=== PATIENT | male | born 1965 | race Hispanic/Latino ===

== ENCOUNTER 2016-10-18 01:09 | Emergency (ER) | payer MEDICAID ==
[2016-10-18 01:15] VITALS: BMI 32.8
--- NOTE | 2016-10-18 01:30 | ED PDOC ---
Arrival/HPI - General Chief Complaint: Trauma Time Seen by Provider: 10/18/16 01:11 Historian: Patient - History of Present Illness Narrative History of Present Illness (Text): 10/18/16 01:25 Mahesh Mckenna is a 51 year old male, with a history of right knee repair, presents to the emergency department complaining of left posterior rib pain status post mechanical fall at 6:30 pm yesterday. Patient states he slipped on ice and fell backward. Denies any head trauma as he grabbed the back of his head with his hands while falling backward. Denies any loss of consciousness. Informs that pain is worsened with deep inspirations. Denies any fever, chills, headache, neck pain, weakness/numbness to extremities or any other complaints at this time. Time/Duration: 4-6 hours Symptom Onset: Sudden Symptom Course: Unchanged Severity Level: Moderate Activities at Onset: Significant Context: Pedestrian Past Medical History - Provider Review Nursing Documentation Reviewed: Yes - Infectious Disease Hx of Infectious Diseases: None - Tetanus Immunization Tetanus Immunization: Unknown - Past Medical History Past Medical History: Non-Contributing - Pulmonary Other/Comment: Smoker - Musculoskeletal/Rheumatological Hx Falls: No Other/Comment: Knee Surgery Right - Psychiatric Hx Depression: No Hx Substance Use: No - Surgical History Hx Orthopedic Surgery: Yes (B/L Knees) - Anesthesia Hx Anesthesia: Yes Hx Anesthesia Reactions: No Hx Malignant Hyperthermia: No - Suicidal Assessment Feels Threatened In Home Enviroment: No Family/Social History - Physician Review Nursing Documentation Reviewed: Yes Family/Social History: No Known Family HX Smoking Status: Current Some Days Smoker Hx Alcohol Use: No Hx Substance Use: No Hx Substance Use Treatment: No Allergies/Home Meds Allergies/Adverse Reactions: Allergies No Known Allergies Allergy (Verified 03/22/12 02:28) Review of Systems - Physician Review All systems were reviewed & negative as marked: Yes - Review of Systems Constitutional: Normal. absent: Fatigue, Fevers Respiratory: Normal. absent: SOB Cardiovascular: Normal. absent: Chest Pain Gastrointestinal: Normal. absent: Abdominal Pain, Diarrhea, Nausea, Vomiting Musculoskeletal: Back Pain (right posterior rib pain ) Skin: Normal Neurological: Normal. absent: Headache, Dizziness Psychiatric: Normal Physical Exam Vital Signs Reviewed: Yes Vital Signs Temp Pulse Resp BP Pulse Ox 10/18/16 01:33 98.1 F 98 H 20 139/99 H 97 Temperature: Afebrile Blood Pressure: Normal Pulse: Regular Respiratory Rate: Normal Appearance: Positive for: Well-Appearing, Non-Toxic, Comfortable Pain Distress: None Mental Status: Positive for: Alert and Oriented X 3 - Systems Exam Head: Present: Atraumatic, Normocephalic Pupils: Present: PERRL Extroacular Muscles: Present: EOMI Conjunctiva: Present: Normal Neck: Present: Normal Range of Motion. No: MIDLINE TENDERNESS, Paraspinal Tenderness Respiratory/Chest: Present: Clear to Auscultation, Good Air Exchange. No: Respiratory Distress, Accessory Muscle Use Cardiovascular: Present: Regular Rate and Rhythm, Normal S1, S2. No: Murmurs Abdomen: Present: Normal Bowel Sounds. No: Tenderness, Distention, Peritoneal Signs, Rebound, Guarding Back: Present: Other (left posterior rib tenderness ). No: CVA Tenderness, Midline Tenderness Neurological: Present: GCS=15, CN II-XII Intact, Speech Normal, Motor Func Grossly Intact, Normal Sensory Function Skin: Present: Warm, Dry, Normal Color. No: Rashes Psychiatric: Present: Alert, Oriented x 3, Normal Insight, Normal Concentration Medical Decision Making ED Course and Treatment: 10/18/16 01:32 Impression: A 51 year old male who presents to the ed complaining of back pain s /p mechanical fall by slipping on ice prior to arrival. On PE, patient has tenderness to left posterior rib area; No abdominal tenderness Differential diagnosis: Rib pain: r/o fracture Plan: -- Morphine -- Rib X-ray Progress Notes: 10/18/16 03:40 X-ray shows left 9th and 10th rib fracture. 10/18/16 03:44 Patient is stable for discharge. Will discharge patient on Motrin and Percocet as needed for worsening pain. Incentive Spirometry at least 3 times daily as instructed. Advised to follow up with PMD within 2-3 days and present back to ed if symptoms worsen. - RAD Interpretation Narrative RAD Interpretations (Text): EXAM: XR Left Ribs and AP Chest, 3 or More Views. FINDINGS: Lungs: Mild subsegmental atelectasis. No consolidation. Pleural space: No pleural effusion. No definite pneumothorax. Heart: No cardiomegaly. Mediastinum: Unremarkable. Bones/joints: Fracture LEFT 9th, 10th ribs. Degenerative changes of shoulders and spine. IMPRESSION: 1. LEFT rib fractures. 2. Incidental/non-acute findings are described above. Radiology Orders: 10/18/16 01:18 RIBS LEFT & PA CHEST [RAD] Stat Formula Checker: Radiologist - Medication Orders Current Medication Orders: Discontinued Medications Morphine Sulfate (Morphine) 6 mg IM STAT STA Stop: 10/18/16 01:19 Last Admin: 10/18/16 01:34 Dose: 6 MG IM Administration Charges Document 10/18/16 01:34 JMR (Rec: 10/18/16 01:34 JMR [facility]) Injection Site MAR Injection Site Left Deltoid Charges for Administration # of IM Administrations 1 - Scribe Statement The provider has reviewed the documentation as recorded by the Arlette Moya Provider Attestation: All medical record entries made by the Marieibgabe were at my direction and personally dictated by me. I have reviewed the chart and agree that the record accurately reflects my personal performance of the history, physical exam, medical decision making, and the department course for this patient. I have also personally directed, reviewed, and agree with the discharge instructions and disposition. Disposition/Present on Arrival - Present on Arrival Any Indicators Present on Arrival: No History of DVT/PE: No History of Uncontrolled Diabetes: No Urinary Catheter: No History of Decub. Ulcer: No History Surgical Site Infection Following: None - Disposition Have Diagnosis and Disposition been Completed?: Yes Diagnosis: Rib fractures Disposition: HOME/ ROUTINE Disposition Time: 03:56 Patient Plan: Discharge Patient Problems: Current Active Problems Problem Status Diagnosed Rib fractures Acute Condition: IMPROVED Discharge Instructions (ExitCare): Rib Fracture (ED) Additional Instructions: Mr. Mckenna thank you for letting us take care of you today. Your provider was Dr. Berry. You were treated for Rib Fractures The emergency medical care you received today was directed at your acute symptoms. If you were prescribed any medication, please fill it and take as directed. It may take several days for your symptoms to resolve. Return to the Emergency Department if your symptoms worsen, do not improve, or if you have any other problems. Please contact your doctor or call one of the physicians/clinics you have been referred to that are listed on the Patient Visit Information form that is included in your discharge packet. Bring any paperwork you were given at discharge with you along with any medications you are taking to your follow up visit. Our treatment cannot replace ongoing medical care by a primary care provider (PCP) outside of the emergency department. Make sure to use incentive spirometry as least 3x daily as instructed. Thank you for allowing the [facility] team to be part of your care today. If you had an X-Ray or CT scan: A Radiologist will review the ED reading if any change in treatment is needed we will contact you. If you had a blood, urine, or wound culture: It will take several days for the results, if any change in treatment is needed we will contact you. If you had an STI test: It will take 48 hours for the results. Please call after 1 week if you have not heard back. Prescriptions: Ibuprofen [Motrin] 600 mg PO Q6 PRN #30 tab PRN Reason: Pain, Moderate (4-7) oxyCODONE/Acetaminophen [Percocet 5/325 mg Tab] 1 ea PO Q6 PRN #10 tab PRN Reason: Pain, Moderate (4-7) Referrals: [facility] [place] [facility] [place] - Follow up with primary Forms: WORK NOTE
--- NOTE | 2016-10-18 03:38 | RAD ---
EXAM: XR Left Ribs and AP Chest, 3 or More Views. CLINICAL HISTORY: 51 years old, male; Injury or trauma; Fall; Initial encounter; Rib area, left side; Fracture, traumatic; Multiple; Closed; Additional info: Fall R/O rib frx TECHNIQUE: Frontal and oblique views of the left ribs and frontal view of the chest. COMPARISON: No relevant prior studies available. FINDINGS: Lungs: Mild subsegmental atelectasis. No consolidation. Pleural space: No pleural effusion. No definite pneumothorax. Heart: No cardiomegaly. Mediastinum: Unremarkable. Bones/joints: Fracture LEFT 9th, 10th ribs. Degenerative changes of shoulders and spine. IMPRESSION: 1. LEFT rib fractures. 2. Incidental/non-acute findings are described above.
[2016-10-18 04:01] VITALS: BP 141/81; PULSE 81; RESP 18; TEMP 98.6; O2SAT 98
== END 2016-10-18 03:57 | disposition home or self-care (01) ==
LOC: ED 01:09
DX: S22.32XA Fracture of one rib, left side, initial encounter for closed fracture (principal); W00.0XXA Fall on same level due to ice and snow, initial encounter; F17.210 Nicotine dependence, cigarettes, uncomplicated
CPT/HCPCS: 71101; 96372; 99284; J2270

== ENCOUNTER 2016-10-26 17:10 | Emergency (ER) | payer MEDICAID ==
[2016-10-26 17:19] VITALS: BMI 34.4
[2016-10-26 17:24] VITALS: TEMP 97.8
--- NOTE | 2016-10-26 17:33 | ED PDOC ---
Arrival/HPI - General Chief Complaint: Cough, Cold, Congestion Time Seen by Provider: 10/26/16 17:14 Historian: Patient - History of Present Illness Narrative History of Present Illness (Text): 10/26/16 17:26 Mahesh Mckenna is a 51 year old smoker who presents to the ED for blood tinged cough since yesterday. Patient reports he recently fractured two left ribs and he has been managing his pain with Ibuprofen and Percocets, of which he ran out. Patient otherwise denies any fever, shortness of breath, nausea, vomiting , abdominal pain, urinary/bowel changes, or other associated symptoms. PMD: None reported. Time/Duration: 24 hours Symptom Onset: Gradual Symptom Course: Unchanged Activities at Onset: Light Context: Home Past Medical History - Provider Review Nursing Documentation Reviewed: Yes - Infectious Disease Hx of Infectious Diseases: None - Tetanus Immunization Tetanus Immunization: Unknown - Past Medical History Past Medical History: Non-Contributing - Pulmonary Other/Comment: Smoker - Musculoskeletal/Rheumatological Hx Falls: No Other/Comment: Knee Surgery Right - Psychiatric Hx Depression: No Hx Substance Use: No - Surgical History Hx Orthopedic Surgery: Yes (B/L Knees) - Anesthesia Hx Anesthesia: Yes Hx Anesthesia Reactions: No Hx Malignant Hyperthermia: No - Suicidal Assessment Feels Threatened In Home Enviroment: No Family/Social History - Physician Review Nursing Documentation Reviewed: Yes Family/Social History: No Known Family HX Smoking Status: Current Some Days Smoker Hx Alcohol Use: No Hx Substance Use: No Hx Substance Use Treatment: No Allergies/Home Meds Allergies/Adverse Reactions: Allergies No Known Allergies Allergy (Verified 03/22/12 02:28) Review of Systems - Physician Review All systems were reviewed & negative as marked: Yes - Review of Systems Constitutional: Normal. absent: Fevers Eyes: Normal. absent: Vision Changes ENT: Normal Respiratory: Cough (Coughing with slight tinge of blood). absent: SOB Cardiovascular: Normal. absent: Chest Pain Gastrointestinal: Normal. absent: Abdominal Pain, Diarrhea, Nausea, Vomiting Genitourinary Male: Normal. absent: Dysuria, Frequency, Hematuria, Urinary Output Changes Musculoskeletal: Back Pain (Left Sided). absent: Neck Pain Skin: Normal Neurological: Normal. absent: Headache, Dizziness Endocrine: Normal Hemo/Lymphatic: Normal Psychiatric: Normal Physical Exam Vital Signs Reviewed: Yes Vital Signs Temp Pulse Resp BP Pulse Ox 10/26/16 17:23 97.8 F 99 H 20 150/97 H 100 10/26/16 17:21 97.8 F 99 H 20 150/97 H 100 Temperature: Afebrile Blood Pressure: Hypertensive Pulse: Tachycardic Respiratory Rate: Normal Appearance: Positive for: Well-Appearing, Non-Toxic, Comfortable Pain Distress: None Mental Status: Positive for: Alert and Oriented X 3 - Systems Exam Head: Present: Atraumatic, Normocephalic Mouth: Present: Moist Mucous Membranes Neck: Present: Normal Range of Motion Respiratory/Chest: Present: Clear to Auscultation, Good Air Exchange, Tender to Palpation (Tender to Palpation Around Lower Left 10th rib). No: Respiratory Distress, Accessory Muscle Use Cardiovascular: Present: Regular Rate and Rhythm, Normal S1, S2. No: Murmurs Abdomen: Present: Normal Bowel Sounds. No: Tenderness, Distention, Peritoneal Signs Back: Present: Normal Inspection Upper Extremity: Present: Normal Inspection. No: Cyanosis, Edema Lower Extremity: Present: Normal Inspection. No: Edema Neurological: Present: GCS=15, CN II-XII Intact, Speech Normal Skin: Present: Warm, Dry, Normal Color. No: Rashes Psychiatric: Present: Alert, Oriented x 3, Normal Insight, Normal Concentration Medical Decision Making ED Course and Treatment: 10/26/16 17:26 Impression: 51 year old male with blood tinged cough and left sided back pain. Differential Diagnosis include but are not limited to: URI vs. Lung Contusion vs pneumonia Plan: -- Chest X-Ray -- Reassess and disposition Prior Visits: Notes and results from previous visits were reviewed. Patient was last seen in the ED on 10/18/16 for evaluation status post a fall. Progress Notes: 10/26/16 19:06 CXR showing L side atelectasis. His cough has been worsening. Will treat for bronchitis. He will need additional pain meds and f/u primary care. - RAD Interpretation Narrative RAD Interpretations (Text): 10/26/16 19:07 CXR: L base atx as read by me. Radiology Orders: 10/26/16 17:29 CHEST TWO VIEWS (PA/LAT) [RAD] Stat Retort Loader: Radiologist - EKG Interpretation EKG Interpretation (Text): 10/26/16 19:07 NSR @ 83; no ST/T changes; normal axis and normal intervals. - Scribe Statement The provider has reviewed the documentation as recorded by the Arlette Kendall Provider Attestation: All medical record entries made by the Arlette were at my direction and personally dictated by me. I have reviewed the chart and agree that the record accurately reflects my personal performance of the history, physical exam, medical decision making, and the department course for this patient. I have also personally directed, reviewed, and agree with the discharge instructions and disposition. Disposition/Present on Arrival - Present on Arrival Any Indicators Present on Arrival: No History of DVT/PE: No History of Uncontrolled Diabetes: No Urinary Catheter: No History of Decub. Ulcer: No History Surgical Site Infection Following: None - Disposition Have Diagnosis and Disposition been Completed?: Yes Diagnosis: Atelectasis of left lung Disposition: HOME/ ROUTINE Disposition Time: 19:10 Patient Plan: Discharge Condition: GOOD Additional Instructions: Take the medications as prescribed. Also recommend Robitussin DM (OTC) and continue incentive spirometer. Make sure you follow up with primary care. Stop smoking. Any additional pain medications would need to be prescribed by primary care. Return to the emergency department if any new concerning symptoms. Prescriptions: oxyCODONE/Acetaminophen [Percocet 5/325 mg Tab] 1 tab PO Q6H PRN #10 tab PRN Reason: Pain, Severe (8-10) Azithromycin [Zithromax] 2 tab PO DAILY #6 tab Referrals: [facility] [place] [facility] [place] - Follow up with primary Forms: WORK NOTE
[2016-10-26 19:23] VITALS: BP 145/72; PULSE 82; RESP 16; O2SAT 97
--- NOTE | 2016-10-27 10:58 | RAD ---
HISTORY: hemoptysis, recent rib fx COMPARISON: No prior. TECHNIQUE: Chest PA and lateral FINDINGS: LUNGS: There is linear atelectasis in the left lower lobe. The right lung is clear. PLEURA: No significant pleural effusion identified. No pneumothorax apparent. CARDIOVASCULAR: Normal. OSSEOUS STRUCTURES: No significant abnormalities. VISUALIZED UPPER ABDOMEN: Normal. OTHER FINDINGS: None. IMPRESSION: Linear atelectasis in the left lower lobe. No pneumothorax.
--- NOTE | 2016-10-27 18:30 | CARD ---
APPROVED REPORT EKG Measurement Heart [id number] <Conclusion> Normal sinus rhythm Normal ECG
== END 2016-10-26 19:21 | disposition home or self-care (01) ==
LOC: ED 17:10
DX: J98.11 Atelectasis (principal); Z72.0 Tobacco use

== ENCOUNTER 2016-11-20 23:14 | Emergency (ER) | payer MEDICAID ==
[2016-11-20 23:39] VITALS: BMI 31.3
[2016-11-20 23:40] VITALS: TEMP 98.9
--- NOTE | 2016-11-21 | ED PDOC ---
Arrival/HPI <Martin Orosco - Last Filed: 11/21/16 03:51> - History of Present Illness Time/Duration: Prior to Arrival Symptom Onset: Sudden Symptom Course: Unchanged Quality: Aching, Throbbing Severity Level: 7 <Faina Miller - Last Filed: 11/21/16 04:02> - General Chief Complaint: Rib Injury Time Seen by Provider: 11/20/16 23:39 - History of Present Illness Narrative History of Present Illness (Text): 11/21/16 00:09 51 yo M smoker w h/o L 9th and 10th rib fractures presents to the ER s/p mechanical fall with left rib trauma. Patient states he fractured his left ribs approximately one month ago, has been managing pain with percocet and Tylenol at home. He states he does not have a PMD and has not obtained one nor followed up with any physician since his rib fractures one month ago. Patient states he was walking down steps today when he slipped and fell, hitting his left ribs on the banister. He immediately experienced a sharp pain at that area. He admits to mild chill since the event and increased pain with deep inspiration. Denies any CP, dizziness, headache, confusion, SOB prior to fall. Patient denies head trauma and loss of consciousness. (Faina Miller) Past Medical History - Provider Review Nursing Documentation Reviewed: Yes - Travel History Have you recently traveled outside [place] w/in the past 3 mons?: No - Infectious Disease Hx of Infectious Diseases: None - Tetanus Immunization Tetanus Immunization: Unknown - Past Medical History Past Medical History: Non-Contributing - Pulmonary Other/Comment: Smoker - Musculoskeletal/Rheumatological Hx Falls: No Other/Comment: Knee Surgery Right - Psychiatric Hx Depression: No Hx Substance Use: No - Surgical History Hx Orthopedic Surgery: Yes (B/L Knees) - Anesthesia Hx Anesthesia: Yes Hx Anesthesia Reactions: No Hx Malignant Hyperthermia: No - Suicidal Assessment Feels Threatened In Home Enviroment: No <Faina Miller - Last Filed: 11/21/16 04:02> Family/Social History - Physician Review Nursing Documentation Reviewed: Yes Family/Social History: Diabetes, Hypertension Smoking Status: Current Some Days Smoker Hx Alcohol Use: No Hx Substance Use: No Hx Substance Use Treatment: No <Faina Miller - Last Filed: 11/21/16 04:02> Allergies/Home Meds <Martin Orosco - Last Filed: 11/21/16 03:51> <Faina Miller - Last Filed: 11/21/16 04:02> Allergies/Adverse Reactions: Allergies No Known Allergies Allergy (Verified 03/22/12 02:28) Review of Systems - Physician Review All systems were reviewed & negative as marked: Yes - Review of Systems Constitutional: absent: Fatigue, Fevers Eyes: Normal ENT: Normal Respiratory: SOB (mild). absent: Cough, Sputum Cardiovascular: Chest Pain (left lateral thorax). absent: Palpitations, Edema, Calf Pain, Syncope Gastrointestinal: absent: Abdominal Pain, Constipation, Diarrhea, Nausea, Vomiting, Hematochezia, Hematemesis Genitourinary Male: absent: Dysuria, Frequency Musculoskeletal: absent: Arthralgias, Back Pain, Neck Pain Skin: absent: Rash, Skin Lesions Neurological: absent: Headache, Dizziness Endocrine: absent: Diaphoresis Hemo/Lymphatic: absent: Easy Bleeding, Easy Bruising Psychiatric: Normal <Faina Miller - Last Filed: 11/21/16 04:02> Physical Exam Vital Signs Reviewed: Yes Temperature: Afebrile Blood Pressure: Hypertensive Pulse: Tachycardic (mild, 97bpm) Respiratory Rate: Normal Appearance: Positive for: Non-Toxic, Uncomfortable Pain Distress: Moderate Mental Status: Positive for: Alert and Oriented X 3 - Systems Exam Head: Present: Atraumatic, Normocephalic Pupils: Present: PERRL Extroacular Muscles: Present: EOMI Conjunctiva: Present: Normal. No: Injected, Icteric Ears: Present: Normal Mouth: Present: Dry (slightly) Neck: Present: Normal Range of Motion. No: Meningeal Signs, JVD Respiratory/Chest: Present: Clear to Auscultation, Good Air Exchange, Tender to Palpation (over left lateral lower ribs extensing below ribs to LUQ). No: Respiratory Distress, Accessory Muscle Use, Decreased Breath Sounds, Rales, Retracting, Rhonchi Cardiovascular: Present: Normal S1, S2, Tachycardic (mild, 90s). No: Irregular Rhythm Abdomen: Present: Tenderness (LUQ, mild), Normal Bowel Sounds. No: Distention, Peritoneal Signs, Rebound, Guarding Upper Extremity: Present: Normal Inspection. No: Cyanosis, Edema Lower Extremity: Present: Normal Inspection. No: Edema, CALF TENDERNESS Neurological: Present: GCS=15, CN II-XII Intact, Speech Normal Skin: Present: Warm, Dry, Normal Color. No: Rashes Psychiatric: Present: Alert, Oriented x 3, Normal Insight, Normal Concentration <Faina Miller - Last Filed: 11/21/16 04:02> Vital Signs Temp Pulse Resp BP Pulse Ox 11/20/16 23:39 98.9 F 97 H 18 152/83 H 98 Medical Decision Making - Lab Interpretations I have reviewed the lab results: Yes - RAD Interpretation Product Analyst: Radiologist <Martin Orosco - Last Filed: 11/21/16 03:51> Re-evaluation Time: 02:32 Reassessment Condition: Re-examined, Improved - Lab Interpretations I have reviewed the lab results: Yes Interpretation: All labs normal - RAD Interpretation Product Analyst: Radiologist <Faina Miller - Last Filed: 11/21/16 04:02> ED Course and Treatment: Impression: Pt seen and evaluated with medical research scientist. Pt, whose past medical history includes tobacco abuse and left 9th/10th rib fracture, presented status post fall today with sharp left-sided rib pain. Pt states he fell while walking down steps and landed on his left side on a banister. Pt also c/o pain with deep inspiration. Aware and agree with HPI, clinical findings, plan, and management. Differential Diagnosis include but are not limited to: rib fracture vs. contusion vs. splenic injury vs. musculoskeletal pain Plan: -- CT Chest, Abdomen with IV contrast -- Labs -- IV fluids -- Morphine -- Reassess and disposition Prior Visits: Notes and results from previous visits were reviewed. Progress Notes: 11/21/16 03:28 CT Chest shows: Lungs: Lungs. Bilateral dependent atelectatic changes, cannot exclude an element of pulmonary contusion. There is a 6 mm nodule adjacent to the left major fissure series 4 image 34. In the right middle lobe series 4 image 68 there is a 3 mm nodule. Pleural space: Unremarkable. No pneumothorax. No significant effusion. Heart: Unremarkable. No cardiomegaly. No significant pericardial effusion. Mediastinum: Air in patulous esophagus in keeping with reflux. Small hiatus hernia. Bones/joints: There is a left posterolateral rib fracture series 2 image 94, of the left ninth rib. There is no evidence of healing and this may be acute versus related to non-healing of the previous left ninth rib fracture. No fracture of the left 10th rib is identified at this time. No other rib fractures are seen. There are degenerative spine changes. there are no findings of acute fracture of the thoracic spine. No dislocation. Soft tissues: Unremarkable. Vasculature: There is no evidence to suggest acute traumatic aortic injury. The study is not designed for evaluation of the pulmonary arteries. No large or central embolus is seen. Extensive mixing artifact precludes evaluation beyond the most central pulmonary arteries. Lymph nodes: No pathologically enlarged nodes are seen in the thorax. Upper abdomen: See abdominal CT. IMPRESSION: Fracture of the left ninth rib which may represent the previously noted rib fracture. No pneumothorax or pleural effusion. Lung nodules as above. As per Fleischner Society guidelines for follow-up and management of pulmonary nodules: For patients at low risk (minimal or absent history of smoking and of other known risk factors), recommend initial follow-up chest CT at 6-12 months then at 18- 24 months if no change. For patient at high risk (history of smoking or of other known risk factors), recommend initial follow-up chest CT at 3-6 months, then at 9-12 and [address] Abdomen shows: Lower thorax: See chest CT report. Liver: Hepatic steatosis. Gallbladder and bile ducts: Gallbladder is collapsed. No calcified stones. No ductal dilation. Pancreas: Unremarkable. No mass. No ductal dilation. Spleen: Unremarkable. No splenomegaly. Adrenals: Unremarkable. No mass. Kidneys and ureters: There are bilateral renal calculi without renal obstruction. Hypoattenuating findings right kidney series 2 image 137 19 mm, not definitively characterized on this study, noting that there are additional hypoattenuating findings too small to characterize in the right lower pole coronal image 34. There is no finding to suggest acute renal parenchymal injury. Stomach and bowel: Bowel with multiple diverticuli, no findings of acute diverticulitis. No obstruction. Appendix: Normal appendix. Intraperitoneal space: No free air. No significant fluid collection. Bones/joints: There are severe degenerative spine changes. No acute fracture. No dislocation. Soft tissues: Unremarkable. Vasculature: Unremarkable. No abdominal aortic aneurysm. Lymph nodes: Unremarkable. No enlarged lymph nodes. IMPRESSION: No fractures and no evidence of injury to the parenchymal organs in the abdomen. No free air. Incidental findings as above noting specifically incompletely characterized renal findings. Clarification is recommended for the 19 mm incompletely characterized finding if it has not been performed previously. (Martin Orosco) 11/21/16 00:27 51 yo M with L 9th and 10th rib fractures ~1 month ago presents s/p mechanical fall with repeat injury to the area. He does exhibit some TTP over left lower ribs and slight TTP LUQ abdomen. Will obtain CT chest and abdomen with IV contrast to assess rib fractures and possible splenic injury. Morphine for pain , IVF. Labs. Reassess and dispo. 11/21/16 01:59 Patient re-evaluated, states his pain is improved, still having some pain with deep inspiration. 11/21/16 03:38 Patient states he feels better. Discussed incidental findings on CT scan, instructed to followup with PMD. All questions answered, stable for DC home with percocet PRN pain, followup with PMD in 1-2 days. (Faina Miller) - Lab Interpretations Lab Results: 11/21/16 00:35 11/21/16 00:35 Lab Results 11/21/16 00:35: WBC 6.2, RBC 4.56, Hgb 14.0, Hct 40.0 L, MCV 87.7, MCH 30.7, MCHC 35.0, RDW 12.4, Plt Count 201, MPV 9.2, Gran % 59.3, Lymph % (Auto) 28.2, Weston % (Auto) 9.2 H, Eos % (Auto) 2.8, Baso % (Auto) 0.5, Gran # 3.66, Lymph # 1.7, Weston # 0.6, Eos # 0.2, Baso # 0.03, PT 10.7, INR 0.99, APTT 25.7, Sodium 139, Potassium 4.2, Chloride 99, Carbon Dioxide 30, Anion Gap 14, BUN 19, Creatinine 0.9, Est GFR ( Amer) > 60, Est GFR (Non-Af Amer) > 60, Random Glucose 118 H, Calcium 8.7, Total Bilirubin 0.5, AST 30, ALT 38, Alkaline Phosphatase 85, Total Protein 7.3, Albumin 4.0, Globulin 3.3, Albumin/Globulin Ratio 1.2 - RAD Interpretation Radiology Orders: 11/21/16 00:59 CHEST, ABDOMEN WITH CONTRAST [CT] Stat - Medication Orders Current Medication Orders: Discontinued Medications Sodium Chloride (Sodium Chloride 0.9%) 1,000 mls @ 999 mls/hr IV .Q1H1M STA Stop: 11/21/16 01:00 Last Admin: 11/21/16 00:50 Dose: 999 MLS/HR eMAR Start Stop Document 11/21/16 00:50 MR (Rec: 11/21/16 00:50 [id number]) Intravenous Solution Start Date 11/21/16 Start Time 00:50 End Date 11/21/16 End time 01:50 Total Infusion Time 60 Iohexol (Omnipaque 350 100 Ml) Confirm Administered Dose 350 mg .ROUTE .STK-MED ONE Stop: 11/21/16 02:00 Morphine Sulfate (Morphine) 4 mg IVP STAT STA Stop: 11/21/16 00:01 Last Admin: 11/21/16 00:49 Dose: 4 MG MAR Pain Assessment Document 11/21/16 00:49 MR (Rec: 11/21/16 00:50 [id number]) Pain Reassessment Is this a pain reassessment? No Sleep Is patient sleeping during reassessment? No Presence of Pain Presence of Pain Yes Pain Scale Used Pain Scale Used Numeric Location Left, Right or Bilateral Left Pain Location Body Site Chest Description Description Sharp Intensity of Pain at present 10 Pain Behavior Restlessness Facial Grimacing Aggravating Factors ADL's Changing Position Exercise/Activity Alleviating Factors/Management Medication Techniques Position Change Inactivity IVP Administration Document 11/21/16 00:49 MR (Rec: 11/21/16 00:50 [id number]) Charges for Administration # of IVP Administrations 1 - PA / MANAGER OCCUPATIONAL / Resident Statement / has reviewed & agrees with the documentation as recorded. / has examined the patient and agrees with the treatment plan. <Martin Orosco - Last Filed: 11/21/16 03:51> Disposition/Present on Arrival <Martin Orosco - Last Filed: 11/21/16 03:51> - Present on Arrival Any Indicators Present on Arrival: No History of DVT/PE: No History of Uncontrolled Diabetes: No Urinary Catheter: No History of Decub. Ulcer: No History Surgical Site Infection Following: None - Disposition Have Diagnosis and Disposition been Completed?: Yes Disposition Time: 03:45 Patient Plan: Discharge <Sue Millera - Last Filed: 11/21/16 04:02> - Disposition Diagnosis: Rib fractures, Fall Disposition: HOME/ ROUTINE Patient Problems: Current Active Problems Problem Status Diagnosed Fall Acute Rib fractures Acute Condition: STABLE Discharge Instructions (ExitCare): Rib Fracture (ED), Fall Prevention (ED) Print Language: KITTITIAN Additional Instructions: Please followup with your primary care physician or at the [facility] [place] regarding coincidental CT findings within 1-3 days. Prescriptions: oxyCODONE/Acetaminophen [Percocet 5/325 mg Tab] 1 ea PO Q6 PRN #16 tab PRN Reason: Pain, Moderate (4-7) Referrals: [facility] [place] [facility] [place] - Follow up with primary Pia Velázquez DO [Family Provider] - Follow up with primary Forms: WORK NOTE
[2016-11-21] MEDS: Morphine 4 mg/ml ISec IVP STA (00:49)
[2016-11-21] MEDS: Sodium Chloride 0.9% 1,000 ML IV STA (00:50)
[2016-11-21 01:02] LABS: ADD MANUAL DIFF? NO
[2016-11-21 01:05] LABS: BASO # 0.03 K/mm3 (0.0-2.0); BASO % 0.5 % (0.0-3.0); EOS # 0.2 (0.0-0.7); EOS % 2.8 % (1.5-5.0); GRAN # 3.66 (1.4-6.5); GRAN % 59.3 % (50.0-68.0); LYMPH # 1.7 (1.2-3.4); LYMPH % 28.2 % (22.0-35.0); MEAN CELL VOLUME 87.7 fL (80.0-105.0); MEAN CORPUSCULAR HEMOGLOBIN 30.7 pg (25.0-35.0); MEAN PLATELET VOLUME 9.2 fl (7.0-11.0); MONO # 0.6 (0.1-0.6); MONO % 9.2 % (1.0-6.0); PLATELET COUNT 201 10^3/uL (120.0-450.0); RED CELL DISTRIBUTION WIDTH 12.4 % (11.5-14.5); WHITE BLOOD COUNT 6.2 10^3/ul (4.5-11.0)
[2016-11-21 01:13] LABS: ALB/GLOB RATIO 1.2 (1.1-1.8); ALT/SGPT 38 U/L (7-56); AST/SGOT 30 U/L (15-59); BILIRUBIN,TOTAL 0.5 mg/dL (0.2-1.3); BLOOD UREA NITROGEN 19 mg/dL (7-21); CALCIUM 8.7 mg/dL (8.4-10.5); CARBON DIOXIDE 30 mmol/L (21-33); CHLORIDE 99 mmol/L (98-107); GFR AFRICAN-AMERICAN > 60; GLUCOSE,RANDOM 118 mg/dL (70-110); POTASSIUM 4.2 mmol/L (3.6-5.0); SODIUM 139 mmol/L (132-148); TOTAL PROTEIN 7.3 g/dL (5.8-8.3)
[2016-11-21 01:19] LABS: INR 0.99 (0.93-1.08); PARTIAL THROMBOPLASTIN TIME 25.7 Seconds (23.7-30.8)
[2016-11-21 01:21] LABS: ALKALINE PHOSPHATASE 85 U/L (38-133)
[2016-11-21] MEDS ORDERED: Iohexol 350 MG/100 ML VIAL ONE (01:59)
--- NOTE | 2016-11-21 03:25 | CT ---
EXAM: CT Chest With Intravenous Contrast CLINICAL HISTORY: 51 years old, male; Pain; Abdominal pain; Localized; Left upper quadrant (luq); Chest pain; Type not specified; Additional info: H/o rib fractures, new trauma luq pain TECHNIQUE: Axial computed tomography images of the chest with intravenous contrast. Coronal and sagittal reformatted images were created and reviewed. CONTRAST: 96 mL of OMNI 350 administered intravenously. COMPARISON: No relevant prior studies available. FINDINGS: There are no previous images or previous reports of chest or abdominal CT for comparison. Previous report of plain film dated October 18, 2016 is reviewed. Lungs: Lungs. Bilateral dependent atelectatic changes, cannot exclude an element of pulmonary contusion. There is a 6 mm nodule adjacent to the left major fissure series 4 image 34. In the right middle lobe series 4 image 68 there is a 3 mm nodule. Pleural space: Unremarkable. No pneumothorax. No significant effusion. Heart: Unremarkable. No cardiomegaly. No significant pericardial effusion. Mediastinum: Air in patulous esophagus in keeping with reflux. Small hiatus hernia. Bones/joints: There is a left posterolateral rib fracture series 2 image 94, of the left ninth rib. There is no evidence of healing and this may be acute versus related to non-healing of the previous left ninth rib fracture. No fracture of the left 10th rib is identified at this time. No other rib fractures are seen. There are degenerative spine changes. there are no findings of acute fracture of the thoracic spine. No dislocation. Soft tissues: Unremarkable. Vasculature: There is no evidence to suggest acute traumatic aortic injury. The study is not designed for evaluation of the pulmonary arteries. No large or central embolus is seen. Extensive mixing artifact precludes evaluation beyond the most central pulmonary arteries. Lymph nodes: No pathologically enlarged nodes are seen in the thorax. Upper abdomen: See abdominal CT. IMPRESSION: Fracture of the left ninth rib which may represent the previously noted rib fracture. No pneumothorax or pleural effusion. Lung nodules as above. As per Fleischner Society guidelines for follow-up and management of pulmonary nodules: For patients at low risk (minimal or absent history of smoking and of other known risk factors), recommend initial follow-up chest CT at 6-12 months then at 18-24 months if no change. For patient at high risk (history of smoking or of other known risk factors), recommend initial follow-up chest CT at 3-6 months, then at 9-12 and 24 months if no change. EXAM: CT Abdomen With Intravenous Contrast CLINICAL HISTORY: 51 years old, male; Pain; Abdominal pain; Localized; Left upper quadrant (luq); Chest pain; Type not specified; Additional info: H/o rib fractures, new trauma luq pain TECHNIQUE: Axial computed tomography images of the abdomen with intravenous contrast. Coronal and sagittal reformatted images were created and reviewed. CONTRAST: 96 mL of OMNI 350 administered intravenously. EXAM DATE/TIME: Exam ordered 11/21/2016 12:59 AM COMPARISON: CR - CHEST TWO VIEWS (PA/LAT) 10/26/2016 6:25:19 PM FINDINGS: There are no previous images or previous reports of chest or abdominal CT for comparison. Previous report of plain film dated October 18, 2016 is reviewed. Lower thorax: See chest CT report. Liver: Hepatic steatosis. Gallbladder and bile ducts: Gallbladder is collapsed. No calcified stones. No ductal dilation. Pancreas: Unremarkable. No mass. No ductal dilation. Spleen: Unremarkable. No splenomegaly. Adrenals: Unremarkable. No mass. Kidneys and ureters: There are bilateral renal calculi without renal obstruction. Hypoattenuating findings right kidney series 2 image 137 19 mm, not definitively characterized on this study, noting that there are additional hypoattenuating findings too small to characterize in the right lower pole coronal image 34. There is no finding to suggest acute renal parenchymal injury. Stomach and bowel: Bowel with multiple diverticuli, no findings of acute diverticulitis. No obstruction. Appendix: Normal appendix. Intraperitoneal space: No free air. No significant fluid collection. Bones/joints: There are severe degenerative spine changes. No acute fracture. No dislocation. Soft tissues: Unremarkable. Vasculature: Unremarkable. No abdominal aortic aneurysm. Lymph nodes: Unremarkable. No enlarged lymph nodes. IMPRESSION: No fractures and no evidence of injury to the parenchymal organs in the abdomen. No free air. Incidental findings as above noting specifically incompletely characterized renal findings. Clarification is recommended for the 19 mm incompletely characterized finding if it has not been performed previously.
[2016-11-21] MEDS: Morphine 2 mg/ml ISec IVP STA (04:27)
[2016-11-21 04:29] VITALS: BP 117/56; PULSE 64; RESP 17; O2SAT 96
== END 2016-11-21 04:29 | disposition home or self-care (01) ==
LOC: ED 23:14
DX: S22.32XA Fracture of one rib, left side, initial encounter for closed fracture (principal); W01.0XXA Fall on same level from slipping, tripping and stumbling without subsequent striking against object, initial encounter; F17.210 Nicotine dependence, cigarettes, uncomplicated
CPT/HCPCS: 71260; 74160; 80053; 85025; 85610; 85730; 96361; 96374; 99284; J2270; J7040; Q9967

== ENCOUNTER 2017-05-13 06:36 | Emergency (ER) | payer MEDICAID ==
[2017-05-13 06:36] VITALS: BMI 31.3
[2017-05-13 06:42] VITALS: RESP 18; TEMP 98
[2017-05-13] MEDS ORDERED: Lidocaine 1% Inj (20ml) ONE (06:48)
--- NOTE | 2017-05-13 07:51 | ED PDOC ---
Arrival/HPI - General Chief Complaint: Abnormal Skin Integrity Time Seen by Provider: 05/13/17 07:04 Historian: Patient - History of Present Illness Narrative History of Present Illness (Text): 05/13/17 07:45 Patient presents to ED after tripping this morning and hitting his chin against a dresser. Denies loss of consciousness. Denies neck pain. Denies headache. Denies loose teeth. Denies other injuries aside from chin. No numbness or weakness. States last tetanus shot within past 5 years. Past Medical History - Infectious Disease Hx of Infectious Diseases: None - Tetanus Immunization Tetanus Immunization: Unknown - Past Medical History Past Medical History: Non-Contributing - Pulmonary Other/Comment: Smoker - Musculoskeletal/Rheumatological Hx Falls: No Other/Comment: Knee Surgery Right - Psychiatric Hx Depression: No Hx Substance Use: No - Surgical History Hx Orthopedic Surgery: Yes (B/L Knees) - Anesthesia Hx Anesthesia: Yes Hx Anesthesia Reactions: No Hx Malignant Hyperthermia: No - Suicidal Assessment Feels Threatened In Home Enviroment: No Family/Social History Family/Social History: Unknown Family HX Smoking Status: Heavy Smoker > 10 Cigarettes Daily Hx Alcohol Use: No Hx Substance Use: No Hx Substance Use Treatment: No Allergies/Home Meds Allergies/Adverse Reactions: Allergies No Known Allergies Allergy (Verified 05/13/17 06:42) Home Medications: Home Meds Medication Instructions Recorded Confirmed No Known Home Med 05/13/17 05/13/17 Review of Systems - Review of Systems Constitutional: absent: Fevers Eyes: absent: Vision Changes, Eye Pain ENT: absent: Sore Throat, Epistaxis, Sinus Congestion Respiratory: absent: SOB Cardiovascular: absent: Chest Pain Gastrointestinal: absent: Nausea Musculoskeletal: absent: Neck Pain Neurological: absent: Headache, Dizziness, Focal Weakness, Disequilibrium Endocrine: absent: Polyuria Hemo/Lymphatic: absent: Easy Bleeding Physical Exam Vital Signs Reviewed: Yes Vital Signs Temp Pulse Resp BP Pulse Ox 05/13/17 08:03 62 18 131/89 96 05/13/17 06:39 98.0 F 71 18 154/93 H 98 Temperature: Afebrile Appearance: Positive for: Well-Appearing, Non-Toxic, Comfortable Mental Status: Positive for: Alert and Oriented X 3 - Systems Exam Head: Present: Other (no scalp tenderness or swelling, there is chin laceration with no bony deformity or foreign body, mild soft tissue swelling around laceration) Pupils: Present: PERRL Extroacular Muscles: Present: EOMI Conjunctiva: No: Injected Mouth: Present: Moist Mucous Membranes, Other (no lip laceration, no tongue laceration, no dental avulsion or fracture, normal jaw occlusionl, no tmj pain) Nose (External): Present: Atraumatic Nose (Internal): Present: Normal Inspection Neck: Present: Normal Range of Motion. No: Meningeal Signs, MIDLINE TENDERNESS Cardiovascular: Present: Regular Rate and Rhythm Upper Extremity: Present: Normal Inspection Lower Extremity: Present: Normal Inspection Neurological: Present: CN II-XII Intact, Speech Normal, Motor Func Grossly Intact, Normal Sensory Function, Gait Normal, Memory Normal Skin: Present: Laceration (approximately 2.5 laceration of chin, no foreign body , superficial, does not involve lips, well approximated) Psychiatric: Present: Alert, Normal Insight, Normal Concentration, Normal Affect Medical Decision Making ED Course and Treatment: Upon arrival, patient's wound irrigated under pressure with normal saline. No foreign body noted. No other injuries noted or reported. Neuro exam intact. No syncope by history. CV stable. No neck pain noted. No orbital pain. No visual symptoms. No dental avulsion. No lip laceration noted. Bleeding controlled. I discussed in depth treatment options and procedure for laceration repair. Patient given local anesthesia with adequate anesthesia. Under sterile conditions, laceration repaired with FIVE simple interrupted sutures with 5-0 surgipro. Tetanus shot is up to date as per patient. I have discussed risks of infection and scarring with patient in laymen's terms. Advised follow-up with his PMD or ER in 7 days for suture removal. Immediate return to ED for any signs of infection which I have reviewed with him. Patient denies diabetes or any history of poor healing or scarring or being immunocompromised. Procedure: Wound Repair - Time Performed Time Performed: 07:20 - Time Out Time Out: Side verified, Site verified, Patient ID confirmed, Sterile procedures obs. - Procedure Procedure: Wound Repair: chin laceration repair - Consent Obtained Consent obtained: Verbal - Performed by Performed by: Attending Physician - Indications Indication(s):: Laceration - Location Location:: Chin Shape:: Linear Dimensions Length cm: 2.5 Depth:: Epidermis - Anesthetic Technique Anesthetic Technique: Local Local/Regional Anesthetic:: Lidocaine 2% - Debris Debris:: None - Irrigated Irrigated with ml of normal saline: 1000 - Complexity Complexity:: Simple (one layer) - Wound repair method Sutures:: # (5), Size (5-0), Type (surgipro), Technique (simple interrupted) - Muscle repiar layer closed with Muscle repair layer closed with:: Wound well approximated, Abx ointment applied , Dressing applied, Tetanus up to date - Complications Complications: none, patient tolerated procedure well - Patient tolerated procedure Patient Tolerated Procedure:: Well Disposition/Present on Arrival - Present on Arrival Any Indicators Present on Arrival: No History of DVT/PE: No History of Uncontrolled Diabetes: No Urinary Catheter: No History of Decub. Ulcer: No History Surgical Site Infection Following: None - Disposition Have Diagnosis and Disposition been Completed?: Yes Diagnosis: Laceration of chin Disposition: HOME/ ROUTINE Disposition Time: 07:46 Patient Plan: Discharge Condition: GOOD Discharge Instructions (ExitCare): Care For Your Stitches (ED), Laceration (ED) Additional Instructions: You have 5 stitches that need removal in 7 days. Please go to your primary physician or return to ER for stitch and suture removal. For any redness, pus, drainage, increase in swelling, fevers, or any signs of infection get rechecked. Eat a soft diet, follow-up with dentist for any dental (tooth) pain or discomfort. Referrals: PCP,NO [Primary Care Provider] - Follow up with primary Forms: [employer] ([place])
[2017-05-13 08:04] VITALS: BP 131/89; PULSE 62; O2SAT 96
== END 2017-05-13 08:04 | disposition home or self-care (01) ==
LOC: ED 06:36
DX: S01.81XA Laceration without foreign body of other part of head, initial encounter (principal); W01.190A Fall on same level from slipping, tripping and stumbling with subsequent striking against furniture, initial encounter; Y93.89 Activity, other specified; Y92.89 Other specified places as the place of occurrence of the external cause

== ENCOUNTER 2017-05-21 08:01 | Emergency (ER) | payer MEDICAID ==
[2017-05-21 08:09] VITALS: BMI 29.6
[2017-05-21 08:12] VITALS: BP 146/92; PULSE 76; RESP 16; TEMP 98.1; O2SAT 98
--- NOTE | 2017-05-21 08:39 | ED PDOC ---
Arrival/HPI - General Chief Complaint: Suture/Staple Removal Time Seen by Provider: 05/21/17 08:15 Historian: Patient - History of Present Illness Narrative History of Present Illness (Text): 05/21/17 08:32 A 52 year old male, with no significant past medical history, presents to the emergency for suture removal . Patient reports last week he fell and hit his chin, resulting in laceration. After receiving suture, patient placed ointment and bandage on suture. Denies any pus drainage, redness or pain. Patient denies of any headache, vomiting or dizziness. No PMD Past Medical History - Provider Review Nursing Documentation Reviewed: Yes - Infectious Disease Hx of Infectious Diseases: None - Tetanus Immunization Tetanus Immunization: Unknown - Past Medical History Past Medical History: Non-Contributing - Cardiac Hx Cardiac Disorders: No - Pulmonary Other/Comment: Smoker - Neurological Hx Neurological Disorder: No - HEENT Hx HEENT Disorder: No - Renal Hx Renal Disorder: No - Endocrine/Metabolic Hx Endocrine Disorders: No - Hematological/Oncological Hx Blood Disorders: No - Integumentary Hx Dermatological Disorder: No - Musculoskeletal/Rheumatological Hx Falls: No Other/Comment: Knee Surgery Right - Gastrointestinal Hx Gastrointestinal Disorders: No - Genitourinary/Gynecological Hx Genitourinary Disorders: No - Psychiatric Hx Psychophysiologic Disorder: No Hx Depression: No Hx Substance Use: No - Surgical History Hx Orthopedic Surgery: Yes (B/L Knees) - Anesthesia Hx Anesthesia: Yes Hx Anesthesia Reactions: No Hx Malignant Hyperthermia: No - Suicidal Assessment Feels Threatened In Home Enviroment: No Family/Social History - Physician Review Nursing Documentation Reviewed: Yes Family/Social History: No Known Family HX Smoking Status: Heavy Smoker > 10 Cigarettes Daily Hx Alcohol Use: No Hx Substance Use: No Hx Substance Use Treatment: No Allergies/Home Meds Allergies/Adverse Reactions: Allergies No Known Allergies Allergy (Verified 05/13/17 06:42) Home Medications: Home Meds Medication Instructions Recorded Confirmed No Known Home Med 05/13/17 05/21/17 Review of Systems - Physician Review All systems were reviewed & negative as marked: Yes - Review of Systems Skin: Laceration (repaired). absent: Rash Neurological: absent: Headache, Dizziness Physical Exam Vital Signs Reviewed: Yes Vital Signs Temp Pulse Resp BP Pulse Ox 05/21/17 08:03 98.1 F 76 16 146/92 H 98 Temperature: Afebrile Blood Pressure: Normal Pulse: Regular Respiratory Rate: Normal Appearance: Positive for: Well-Appearing Pain Distress: None Mental Status: Positive for: Alert and Oriented X 3 - Systems Exam Head: Present: Normocephalic, Other (5 blue suture on chin). No: Tenderness, Swelling, Ecchymosis, Abrasion Neck: Present: Normal Range of Motion Neurological: Present: GCS=15, CN II-XII Intact, Speech Normal, Motor Func Grossly Intact, Normal Sensory Function, Normal Cerebellar Funct, Gait Normal, Memory Normal Psychiatric: Present: Alert, Oriented x 3, Normal Insight, Normal Concentration Medical Decision Making ED Course and Treatment: 05/21/17 08:35 Impression: 52 year old male here for suture removal. Plan: -- Suture removal -- Reassess and disposition Prior Visits: Notes and results from previous visits were reviewed. Patient was last seen in the emergency department on 05/13/2017 for chin laceration. Patient was discharged home. Progress Notes: Removed 5 sutures with suture removal with no complications. No active bleeding. Great approximation of wound. No pus or blood drainage. Patient feels comfortable and having no further symptoms. - Scribe Statement The provider has reviewed the documentation as recorded by the Arlette Tillman Provider Scribe Attestation: All medical record entries made by the Marieibgabe were at my direction and personally dictated by me. I have reviewed the chart and agree that the record accurately reflects my personal performance of the history, physical exam, medical decision making, and the department course for this patient. I have also personally directed, reviewed, and agree with the discharge instructions and disposition. Disposition/Present on Arrival - Present on Arrival Any Indicators Present on Arrival: No History of DVT/PE: No History of Uncontrolled Diabetes: No Urinary Catheter: No History of Decub. Ulcer: No History Surgical Site Infection Following: None - Disposition Have Diagnosis and Disposition been Completed?: Yes Diagnosis: Visit for suture removal Disposition: HOME/ ROUTINE Disposition Time: 08:39 Patient Plan: Discharge Condition: IMPROVED Discharge Instructions (ExitCare): Stitches Removal (ED) Additional Instructions: Mr Carpenterbelkis, thank you for letting us take care of you today. Your provider was Dr. Berry. You were treated for Suture Removal. The emergency medical care you received today was directed at your acute symptoms. If you were prescribed any medication, please fill it and take as directed. It may take several days for your symptoms to resolve. Return to the Emergency Department if your symptoms worsen, do not improve, or if you have any other problems. Please contact your doctor or call one of the physicians/clinics you have been referred to that are listed on the Patient Visit Information form that is included in your discharge packet. Bring any paperwork you were given at discharge with you along with any medications you are taking to your follow up visit. Our treatment cannot replace ongoing medical care by a primary care provider (PCP) outside of the emergency department. Thank you for allowing the [facility] team to be part of your care today. If you had an X-Ray or CT scan: A Radiologist will review the ED reading if any change in treatment is needed we will contact you. If you had a blood, urine, or wound culture: It will take several days for the results, if any change in treatment is needed we will contact you. If you had an STI test: It will take 48 hours for the results. Please call after 1 week if you have not heard back. Referrals: [facility] at [facility] [Outside] - Follow up with primary Forms: [employer] (Barbadian)
== END 2017-05-21 08:39 | disposition home or self-care (01) ==
LOC: ED 08:01
DX: Z48.02 Encounter for removal of sutures (principal); F17.210 Nicotine dependence, cigarettes, uncomplicated

== ENCOUNTER 2017-09-17 23:58 | Emergency (ER) | payer MEDICAID ==
[2017-09-17 23:58] VITALS: BMI 29.6
[2017-09-18 00:16] VITALS: TEMP 98.1
--- NOTE | 2017-09-18 00:35 | ED PDOC ---
Arrival/HPI - General Chief Complaint: Medical Clearance Time Seen by Provider: 09/18/17 00:22 Historian: Patient - History of Present Illness Narrative History of Present Illness (Text): 09/18/17 00:35 Mahesh Mckenna is a 52 year old male who presents to the Emergency department complaining of flu-like symptoms. Patient reports he has been experiencing subjective fever, sore throat, diarrhea, cough, and generalized body aches for the past couple of days. Patient denies any chills, chest pain, shortness of breath, nausea, vomiting, urinary symptoms, back pain, neck pain, headache, dizziness, or any other complaints. Symptom Onset: Gradual Symptom Course: Unchanged Activities at Onset: Light Context: Home Past Medical History - Provider Review Nursing Documentation Reviewed: Yes - Infectious Disease Hx of Infectious Diseases: None - Tetanus Immunization Tetanus Immunization: Unknown - Past Medical History Past Medical History: Non-Contributing - Cardiac Hx Cardiac Disorders: No - Pulmonary Other/Comment: Smoker - Neurological Hx Neurological Disorder: No - HEENT Hx HEENT Disorder: No - Renal Hx Renal Disorder: No - Endocrine/Metabolic Hx Endocrine Disorders: No - Hematological/Oncological Hx Blood Disorders: No - Integumentary Hx Dermatological Disorder: No - Musculoskeletal/Rheumatological Hx Falls: No Other/Comment: Knee Surgery Right - Gastrointestinal Hx Gastrointestinal Disorders: No - Genitourinary/Gynecological Hx Genitourinary Disorders: No - Psychiatric Hx Psychophysiologic Disorder: No Hx Depression: No Hx Substance Use: No - Surgical History Hx Orthopedic Surgery: Yes (B/L Knees) - Anesthesia Hx Anesthesia: Yes Hx Anesthesia Reactions: No Hx Malignant Hyperthermia: No - Suicidal Assessment Feels Threatened In Home Enviroment: No Family/Social History - Physician Review Nursing Documentation Reviewed: Yes Family/Social History: Unknown Family HX Smoking Status: Heavy Smoker > 10 Cigarettes Daily Hx Alcohol Use: No Hx Substance Use: No Hx Substance Use Treatment: No Allergies/Home Meds Allergies/Adverse Reactions: Allergies No Known Allergies Allergy (Verified 09/18/17 00:11) Review of Systems - Physician Review All systems were reviewed & negative as marked: Yes - Review of Systems Constitutional: Fevers Eyes: Normal ENT: Sore Throat Respiratory: Cough. absent: SOB Cardiovascular: Normal. absent: Chest Pain Gastrointestinal: Diarrhea. absent: Abdominal Pain, Vomiting Genitourinary Male: Normal. absent: Dysuria, Frequency, Hematuria, Urinary Output Changes Musculoskeletal: Other (+body aches). absent: Back Pain, Neck Pain Skin: Normal. absent: Rash Neurological: Normal. absent: Headache, Dizziness Endocrine: Normal Hemo/Lymphatic: Normal Psychiatric: Normal Physical Exam Vital Signs Reviewed: Yes Vital Signs Temp Pulse Resp BP Pulse Ox 09/18/17 02:45 82 18 132/89 100 09/18/17 00:12 98.1 F 84 20 141/82 96 Temperature: Afebrile Blood Pressure: Normal Pulse: Regular Respiratory Rate: Normal Appearance: Positive for: Well-Appearing, Non-Toxic, Comfortable Pain Distress: None Mental Status: Positive for: Alert and Oriented X 3 - Systems Exam Head: Present: Atraumatic, Normocephalic Pupils: Present: PERRL Extroacular Muscles: Present: EOMI Conjunctiva: Present: Normal Ears: Present: Normal, NORMAL TM, Normal Canal. No: Erythema, TM Bulging, Fluid , TM Perf Mouth: Present: Moist Mucous Membranes Pharnyx: Present: ERYTHEMA (Pharyngeal erythema). No: EXUDATE, TONSILS ENLARGED , Peritonsilar Swelling, Uvular Deviation, Muffled/Hoarse Voice, Strider, Soft Palate/Uvular Edema Nose (External): Present: Atraumatic Nose (Internal): Present: Normal Inspection Neck: Present: Normal Range of Motion. No: Meningeal Signs, MIDLINE TENDERNESS , Paraspinal Tenderness Respiratory/Chest: Present: Clear to Auscultation, Good Air Exchange. No: Respiratory Distress, Accessory Muscle Use Cardiovascular: Present: Regular Rate and Rhythm, Normal S1, S2. No: Murmurs Abdomen: Present: Normal Bowel Sounds. No: Tenderness, Distention, Peritoneal Signs Back: Present: Normal Inspection. No: CVA Tenderness, Midline Tenderness, Paraspinal Tenderness Upper Extremity: Present: Normal Inspection. No: Cyanosis, Edema Lower Extremity: Present: Normal Inspection. No: Edema Neurological: Present: GCS=15, CN II-XII Intact, Speech Normal Skin: Present: Warm, Dry, Normal Color. No: Rashes Psychiatric: Present: Alert, Oriented x 3, Normal Insight, Normal Concentration Medical Decision Making ED Course and Treatment: 09/18/17 00:35 Impression: 52 year old male complaining of flu-like symptoms, subjective fever, body aches , sore throat, diarrhea, and cough for past couple of days. Differential Diagnosis included but are not limited to: Plan: -- Chest X-ray -- Rapid influenza -- IV fluids -- Zofran -- Reassess and disposition Progress Notes: 09/18/17 02:13 CXR reviewed, shows no acute processes. 09/18/17 02:39 On re-evaluation, patient feels better and is in no acute distress. I have discussed the results and plan with the patient, who expresses understanding. Patient in agreement with plan to be discharged home. Patient is stable for discharge. Patient was instructed to follow up with physician or return if symptoms worsen or new concerning symptoms arise. - Lab Interpretations Lab Results: Lab Results 09/18/17 00:19: Influenza Typ A,B (EIA) Negative for flu a/b - RAD Interpretation Radiology Orders: 09/18/17 00:35 CHEST TWO VIEWS (PA/LAT) [RAD] Stat - Medication Orders Current Medication Orders: Discontinued Medications Sodium Chloride (Sodium Chloride 0.9%) 1,000 mls @ 80 mls/hr IV .[id number] [facility] Last Admin: 09/18/17 00:42 Dose: 80 mls/hr eMAR Start Stop Document 09/18/17 00:42 GMD (Rec: 09/18/17 00:42 GMD [facility] [id number]) Intravenous Solution Start Date 09/18/17 Start Time 00:42 Ondansetron HCl (Zofran Inj) 4 mg IVP STAT STA Stop: 09/18/17 00:35 Last Admin: 09/18/17 00:42 Dose: 4 mg IVP Administration Document 09/18/17 00:42 GMD (Rec: 09/18/17 00:42 GMD [facility] [id number]) Charges for Administration # of IVP Administrations 1 Oseltamivir Phosphate (Tamiflu Cap) 75 mg PO STAT STA PRN Reason: Protocol Stop: 09/18/17 02:15 Last Admin: 09/18/17 02:31 Dose: 75 mg - Scribe Statement The provider has reviewed the documentation as recorded by the Arlette Cruz Provider Scribe Attestation: All medical record entries made by the Scribe were at my direction and personally dictated by me. I have reviewed the chart and agree that the record accurately reflects my personal performance of the history, physical exam, medical decision making, and the department course for this patient. I have also personally directed, reviewed, and agree with the discharge instructions and disposition. Disposition/Present on Arrival - Present on Arrival Any Indicators Present on Arrival: No History of DVT/PE: No History of Uncontrolled Diabetes: No Urinary Catheter: No History of Decub. Ulcer: No History Surgical Site Infection Following: None - Disposition Have Diagnosis and Disposition been Completed?: Yes Diagnosis: Influenza Disposition: HOME/ ROUTINE Disposition Time: 02:40 Condition: GOOD Discharge Instructions (ExitCare): Influenza (ED) Prescriptions: Oseltamivir [Tamiflu] 75 mg PO BID #10 cap Ondansetron [Zofran Odt] 8 mg PO TID PRN #10 odt PRN Reason: Nausea/Vomiting Referrals: PCP,NO [Primary Care Provider] - Follow up with primary Forms: [facility] (Scottish), WORK NOTE
[2017-09-18] MEDS ORDERED: Sodium Chloride 0.9% 1,000 ML IV SCH (00:45)
[2017-09-18 02:54] VITALS: BP 132/89; PULSE 82; RESP 18; O2SAT 100
--- NOTE | 2017-09-18 10:07 | RAD ---
HISTORY: COMPARISON: 10/26/2016. TECHNIQUE: Chest PA and lateral FINDINGS: LINES AND TUBES: None. LUNG AND PLEURA: The lungs are well inflated and clear. HEART AND MEDIASTINUM: The heart is not enlarged. The hilar and mediastinal contours are within normal limits. SKELETAL STRUCTURES: The bony structures are within normal limits for the patient's age. VISUALIZED UPPER ABDOMEN: Normal. OTHER FINDINGS: None. IMPRESSION: No acute findings.
== END 2017-09-18 02:55 | disposition home or self-care (01) ==
LOC: ED 23:58
DX: J11.1 Influenza due to unidentified influenza virus with other respiratory manifestations (principal); F17.210 Nicotine dependence, cigarettes, uncomplicated
CPT/HCPCS: 71046; 87804; 96374; 99283; J2405; J7040